=== PATIENT | male | born 1945 | race African-American/Black ===

== ENCOUNTER 2017-04-23 08:49 | Emergency (ER) | payer BC ==
--- NOTE | 2017-04-23 11:13 | NUR ---
I WAS NOTIFIED BY STAFF TO COME TO ED. PT RANDYWILLI JUAREZ HAD BEEN BROUGHT IN BY EMT'S AND PRONOUNCED AFTER APPROX 25 MINS OF CPR. HIS JANEE WAS BROUGHT IN BY [facility]. POLICE HAD NOIFIED A FRIEND RIO TO COME TO [facility] FOR SUPPORT. JANEE HAD ME CONTACT HER DAUGHTER JACOBO AND SON IN [place]. HER FRIEND RIO ARRIVED, DECISION WAS MADE TO USE [facility], WITH HIS REMAINS CREMATED. PERSONAL EFFECTS (GOLD CHAIN) WENT WITH . WALKED OUT TO CAR WITH JANEE AND RIO, AND EXTENDED OUR CONDOLENCES-HAD PRAYER WITH JANEE. SHE HUGGED ME AND THANKED ME. SON AND DAUGHTER ARE ON THEIR WAY FROM [place]. TOD IS [address] HRS. CAUSE OF -DROWNING CAUSED BY POSSIBLE SEIZURE. GOD BLESS THEM. BLESS THEM
== END 2017-04-23 11:30 ==
LOC: ED 08:49 → EDBD 08:50 → ED 08:50
PROC: 0BH17EZ Insertion of Endotracheal Airway into Trachea, Via Natural or Artificial Opening (ICD-10-PCS; principal; 2017-04-23)
PROC: 5A12012 Performance of Cardiac Output, Single, Manual (ICD-10-PCS; principal; 2017-04-23)
DX: I46.9 Cardiac arrest, cause unspecified (principal)
CPT/HCPCS: 31500; 31720; 92950; 99285